=== PATIENT | female | born 1955 | race Two or more races ===

== ENCOUNTER → 2024-04-14 | Outpatient (CLI) | payer BC ==
[2024-04-14 08:07] LABS: Urine Bacteria None Seen /hpf (None Seen)
[2024-04-14 08:20] LABS: Basophils # (auto) 0 10 ^3/uL (0-0.2); Basophils % (auto) 0.7 % (0.0-2.0); Eosinophils # (auto) 0.1 10 ^3/uL (0-0.8); Eosinophils % (auto) 2.1 % (0.0-7.0); Hematocrit 40.9 % (36.0-46.0); Hemoglobin 13.8 g/dL (12.2-16.2); Lymphocytes # (auto) 1.6 10 ^3/uL (0.4-5.4); Lymphocytes % (auto) 32.8 % (10.0-50.0); Mean Corpuscular Hemoglobin 28.9 pg (28.0-32.0); Mean Corpuscular Hgb Conc. 33.7 g/dL (32.0-36.0); Mean Corpuscular Volume 85.8 fL (80.0-100.0); Monocytes # (auto) 0.4 10 ^3/uL (0-1.3); Monocytes % (auto) 7.4 % (0.0-12.0); Neutrophils # (auto) 2.8 10 ^3/uL (1.6-8.6); Platelet Count (auto) 241 10^3/uL (140-450); Red Blood Cells 4.76 10^6/uL (4.0-5.20); Red Cell Distribution Width 13.7 % (11.8-14.3); White Blood Cell 4.9 10^3/uL (4.4-10.8)
[2024-04-14 08:44] LABS: Urine Blood Negative /uL (Negative); Urine Clarity Clear (Clear); Urine Color Light-Yellow (Yellow); Urine Protein, UAD Negative (Negative); Urine Squamous Epithelial Cell None Seen /hpf (<5); Urine Urobilinogen Normal (Negative); Urine WBC 1 /HPF (0-5)
[2024-04-14 09:06] LABS: Alanine Aminotransferase 19 U/L (7-40); Albumin 4.4 g/dL (3.2-4.8); Alkaline Phosphatase 78 U/L (46-116); Anion Gap 7 (5-15); Aspartate Aminotransferase 22 U/L (13-40); BUN/Creatinine Ratio 18.3 (10.0-20.0); Bilirubin, Total 0.6 mg/dL (0.2-1.0); Blood Urea Nitrogen 13 mg/dL (9-23); Calcium 9.4 mg/dL (8.7-10.4); Carbon Dioxide 29 mmol/L (20-31); Chloride 105 mmol/L (98-107); HDL Cholesterol 48 mg/dL (40-59); Potassium 3.9 mmol/L (3.5-5.1); Sodium 141 mmol/L (136-145); Total Protein 6.9 g/dL (5.7-8.2); Triglycerides 114 mg/dL (< 150)
[2024-04-14 09:07] LABS: Cholesterol 240 mg/dL (< 200); Glucose 97 mg/dL (74-106); LDL Cholesterol 191 mg/dL (< 100)
== END | disposition home or self-care (01) ==
LOC: LAB 07:45
PROVIDERS: ATTEND Student in an Organized Health Care Education/Training Program
DX: E55.9 Vitamin D deficiency, unspecified (principal); R03.0 Elevated blood-pressure reading, without diagnosis of hypertension; R73.9 Hyperglycemia, unspecified
CPT/HCPCS: 36415; 80053; 80061; 81001; 82306; 83036; 84443; 85025

== ENCOUNTER → 2024-07-18 | Day surgery (SDC) | payer BC ==
[2024-07-12 10:32] LABS: Urine Bacteria None Seen /hpf (None Seen)
[2024-07-12 10:58] LABS: Urine Blood Negative /uL (Negative); Urine Clarity Clear (Clear); Urine Color Light-Yellow (Yellow); Urine Protein, UAD Negative (Negative); Urine Specific Gravity 1.009 (1.001-1.035); Urine Squamous Epithelial Cell None Seen /hpf (<5); Urine Urobilinogen Normal (Negative); Urine WBC 2 /HPF (0-5); Urine pH 7.5 (5.0-9.0)
[2024-07-12 11:00] LABS: Basophils # (auto) 0 10 ^3/uL (0-0.2); Basophils % (auto) 0.9 % (0.0-2.0); Eosinophils # (auto) 0.1 10 ^3/uL (0-0.8); Hematocrit 40.5 % (36.0-46.0); Hemoglobin 13.7 g/dL (12.2-16.2); Lymphocytes # (auto) 1.8 10 ^3/uL (0.4-5.4); Lymphocytes % (auto) 34.8 % (10.0-50.0); Mean Corpuscular Hgb Conc. 33.8 g/dL (32.0-36.0); Mean Corpuscular Volume 85.7 fL (80.0-100.0); Monocytes # (auto) 0.5 10 ^3/uL (0-1.3); Monocytes % (auto) 8.7 % (0.0-12.0); Neutrophils # (auto) 2.8 10 ^3/uL (1.6-8.6); Neutrophils % (auto) 53.6 % (37.0-80.0); Nucleated Red Blood Cells % 0.1 %; Platelet Count (auto) 265 10^3/uL (140-450); Red Blood Cells 4.73 10^6/uL (4.0-5.20); Red Cell Distribution Width 13.7 % (11.8-14.3); White Blood Cell 5.3 10^3/uL (4.4-10.8)
[2024-07-12 11:22] LABS: Alanine Aminotransferase 19 U/L (7-40); Albumin 4.6 g/dL (3.2-4.8); Alkaline Phosphatase 84 U/L (46-116); Anion Gap 6 (5-15); Aspartate Aminotransferase 20 U/L (13-40); BUN/Creatinine Ratio 28.6 (10.0-20.0); Bilirubin, Total 0.5 mg/dL (0.2-1.0); Blood Urea Nitrogen 20 mg/dL (9-23); Calcium 10.4 mg/dL (8.7-10.4); Chloride 106 mmol/L (98-107); Glucose 84 mg/dL (74-106); INR 0.97 (0.9-1.15); Partial Thromboplastin Time 28.2 SEC (24.5-34.5); Potassium 4.6 mmol/L (3.5-5.1); Prothrombin Time 10.3 sec (9.3-11.8); Sodium 143 mmol/L (136-145); Total Protein 7.3 g/dL (5.7-8.2)
[2024-07-12 11:23] LABS: Carbon Dioxide 31 mmol/L (20-31)
[~2024-07-18] VITALS: Ht 172.7 cm; Wt 73.5 kg
[~2024-07-18] MED LIST: ACETAMINOPHEN IV 100 ML IV ONE; ASPI1TAB20 PO; BUPIVACAINE HCL 50 ML ONE; CEPH500C PO; HYDR-4902 PO; HYDROmorphone HCL 2 MG/ML VL/or syr IV PRN; MEPERIDINE HCL (25 MG/ML) 1ML VIAL IV PRN; ONDANSETRON HCL 4 MG/2 ML VIAL IV ONE; PROPOFOL 10 MG/ML 20 ML IV ONE; ROPIVACAINE 0.5% (5MG/ML) 20ML AMPULE IJ ONE; ceFAZolin 2 GM/D5W50ml 50 ML IV ONE; fentaNYL CITRATE 100 MCG/2 ML VL ONE
[2024-07-18 13:06] VITALS: PULSE 52; RESP 9; O2SAT 100
[2024-07-18] MEDS: ACETAMINOPHEN IV 1000 MG/100ML (10MG/ML) IV PRN (13:37)
[2024-07-18 14:45] VITALS: BP 114/67; PULSE 54; RESP 16; O2SAT 97
--- NOTE | 2024-07-18 18:50 | DVHOP ---
DATE OF SURGERY: 07/18/2024 PREOPERATIVE DIAGNOSIS: Left knee medial meniscus root tear. POSTOPERATIVE DIAGNOSIS: Left knee medial meniscus root tear. PROCEDURE PERFORMED: Left knee arthroscopy with medial meniscus root repair using all-inside technique. ANESTHESIA: General. COMPLICATIONS: None. IMPLANTS USED: Ar[employer]rex FiberStitch x2. WELL TESTING OPERATOR: GRICEL Norton. BLOOD LOSS: 5 mL. INDICATION OF PROCEDURE: The patient is a 68-year-old female who presented to the clinic with a history of left knee pain. Clinical and radiological evaluations demonstrated medial meniscus root tear. Nonoperative and operative management options were discussed. Surgery in the form of knee arthroscopy with meniscus repair was discussed considering she had failed nonoperative management. Benefits, risks, and treatment alternatives were discussed. Specific complications of the surgery such as neurovascular injury, infection, arthrofibrosis, loss of limb or life were discussed. She decided to proceed with surgical option. PROCEDURE IN DETAIL: The patient was identified in the preoperative holding area and the surgical site was marked. Consent was verified. She was brought into the operating room and placed supine on the operating table. General anesthesia was administered. Intravenous antibiotics were given. The extremity was prepped and draped in the usual sterile manner. A timeout was called out to confirm the identity of the patient, the nature of surgery, the site of surgery, the availability of implants, x-rays and allergies to medications. A standard anterolateral port was established. A 30-degree scope was inserted. A standard anteromedial port was established, a probe was inserted and the findings are as follows: * Medial meniscus root tear, split, partial. * Mild grade 2 chondromalacia, medial compartment. * Mild grade 2 chondromalacia, lateral compartment. * Intact ACL and PCL. * Intact lateral meniscus. The meniscus root tear was probed. This was a partial tear. I decided to repair this with an all-inside technique. The Ar[employer]rex FiberStitch device was used as per parts cataloguer's guidelines. The first anchor was deployed; next, the second anchor was deployed and it was cinched for excellent fixation of the root. An undersurface anchor was also placed. In total, two devices were used for excellent fixation of the meniscus tear. Irrigation was given. The incisions were closed with Monocryl. Sterile dressing was applied. The knee was taken through range of motion. DISPOSITION: Good, the patient was extubated and taken to the recovery without complications. PLAN: To remain toe-touch weightbearing. Range of motion will be 0-70 degrees, sitting upright. She will follow up in 2 weeks to start physical therapy in 2 weeks. MD WILBER Osuna/MARCI/LEILA TID: [id number] RECEIPT: [id number]
== END | disposition home or self-care (01) ==
LOC: SUR 07:14
PROVIDERS: ATTEND Orthopaedic Surgery Sports Medicine
DX: S83.242A Other tear of medial meniscus, current injury, left knee, initial encounter (principal); M94.262 Chondromalacia, left knee; X58.XXXA Exposure to other specified factors, initial encounter; Y93.89 Activity, other specified; Y92.89 Other specified places as the place of occurrence of the external cause; Y99.8 Other external cause status
CPT/HCPCS: 29882; 36415; 80053; 81001; 85025; 85610; 85730; C1713; J0690; J2704; J2795; J3010; J3490; J0131

== ENCOUNTER → 2024-11-17 | Outpatient (CLI) | payer BC ==
[~2024-11-17] MED LIST changes: -ACETAMINOPHEN IV 100 ML IV ONE; -BUPIVACAINE HCL 50 ML ONE; -HYDROmorphone HCL 2 MG/ML VL/or syr IV PRN; -MEPERIDINE HCL (25 MG/ML) 1ML VIAL IV PRN; -ONDANSETRON HCL 4 MG/2 ML VIAL IV ONE; -PROPOFOL 10 MG/ML 20 ML IV ONE; -ROPIVACAINE 0.5% (5MG/ML) 20ML AMPULE IJ ONE; -ceFAZolin 2 GM/D5W50ml 50 ML IV ONE; -fentaNYL CITRATE 100 MCG/2 ML VL ONE
[2024-11-17 07:51] LABS: Hematocrit 39.0 % (36.0-46.0); Hemoglobin 13.5 g/dL (12.2-16.2); Mean Corpuscular Hemoglobin 29.2 pg (28.0-32.0); Mean Corpuscular Volume 84.3 fL (80.0-100.0); Nucleated Red Blood Cells % 0.1 %; Urine Protein, UAD Negative (Negative)
[2024-11-17 08:08] LABS: Alanine Aminotransferase 14 U/L (7-40); Albumin 4.3 g/dL (3.2-4.8); Alkaline Phosphatase 85 U/L (46-116); Anion Gap 6 (5-15); BUN/Creatinine Ratio 17.6 (10.0-20.0); Blood Urea Nitrogen 13 mg/dL (9-23); Calcium 9.0 mg/dL (8.7-10.4); Carbon Dioxide 29 mmol/L (20-31); Chloride 106 mmol/L (98-107); Glucose 85 mg/dL (74-106); Potassium 4.2 mmol/L (3.5-5.1); Sodium 141 mmol/L (136-145); Total Protein 7.2 g/dL (5.7-8.2); Triglycerides 83 mg/dL (< 150)
[2024-11-17 08:09] LABS: Bilirubin, Total 0.6 mg/dL (0.2-1.0); HDL Cholesterol 44 mg/dL (40-59)
[2024-11-17 08:12] LABS: Cholesterol 235 mg/dL (< 200)
== END | disposition home or self-care (01) ==
LOC: LAB 06:59
PROVIDERS: ATTEND Student in an Organized Health Care Education/Training Program
DX: E78.5 Hyperlipidemia, unspecified (principal); R73.9 Hyperglycemia, unspecified
CPT/HCPCS: 36415; 80053; 80061; 81001; 83036; 85025